=== PATIENT | female | born 1980 | race Caucasian/White ===

== ENCOUNTER 2023-12-14 06:34 | Emergency (ER) | payer OTHER ==
[~2023-12-14] VITALS: Ht 157.5 cm; Wt 72.0 kg
[2023-12-14] VITALS (9 sets, daily range): BP systolic 109–125; BP diastolic 64–85
[2023-12-14] MEDS ORDERED: OMEPRAZOLE DR40 MG PO (07:22)
[2023-12-14] MEDS ORDERED: ABILIFY10 MG PO (07:24)
[2023-12-14] MEDS ORDERED: AMOX/K CLAV875 M1 PO (09:10)
== END 2023-12-14 09:25 | disposition home or self-care (01) ==
LOC: ED 06:34
DX: J98.11 Atelectasis (principal); K21.9 Gastro-esophageal reflux disease without esophagitis; Z20.822 Contact with and (suspected) exposure to COVID-19